=== PATIENT | female | born 1995 | race Caucasian/White ===

== ENCOUNTER 2016-07-25 21:27 | Emergency (ER) | payer OTHER ==
[~2016-07-25 21:27] MED LIST: BENZ1 PO; BENZ2 PO; HALO1 PO; HALO100P IM; HALO50P IM; LITH300 PO; QUET25 PO; QUET50XR PO; Z.0.BCPILL PO
[2016-07-25 21:29] VITALS: BP 145/87; PULSE 103; RESP 16; TEMP 99.6; O2SAT 100
[2016-07-25] MEDS ORDERED: COGENTIN PO (23:13)
--- NOTE | 2016-07-25 23:24 | PD ---
HPI Chief Complaint: Medication Refill Request Time Seen by Provider: 23:17 Travel History International Travel<30 days: No Contact w/Intl Traveler<30days: No Traveled to known affect area: No History of Present Illness HPI 20-year-old white female presents to emergency department requesting a refill of her Geodon as well as a adjustment in her dose. She states that she takes 80 mg daily. She's been on it now for over a month. She states that she had just moved to the area this past week from [place]. She only has 9 pills left. She does not have any appointment with a psychiatrist until the . She states that she does not have any thoughts of self-harm or harming others. She feels that the dose is too high and she is having side effects. This is giving her shortness of breath, difficulty swallowing and she feels that she's having problems with memory. She states initially that she would like to stay and see the psychiatrist but she is staying in a adult foster care and she has a curfew and needs to go home. PFSH Past Medical History Narrative Medical Schizoaffective disorder, bipolar, anxiety ADHD: No Bipolar Disorder: Yes Cancer: No Cardiovascular Problems: No Diabetes: No Headaches: No Psychiatric: Yes (shizoaffective) Immunizations Current: Yes Migraines: No Seizures: No Thyroid Disease: No Ulcer: No Tetanus Vaccination: < 5 Years ?: Not LMP: 06/25/16 : 0 Para: 0 Miscarriage: 0 : 0 Past Surgical History Other Surgery: Yes (ON LEFT FOOT) Social History Alcohol Use: No Tobacco Use: No Substance Use: No Allergies-Medications (Allergen,Severity, Reaction): Coded Allergies: No Known Allergies (Unverified , 07/25/16) Reported Meds & Prescriptions Reported Meds & Active Scripts Active [Cogentin] 1 Mg PO BID Benztropine Mesylate 2 Mg Tab 2 Mg PO Q12HR Lithotabs ([place] Carbonate) 300 Mg Tabcr 300 Mg PO DIRECTED 1 in a.m. 2 at bedtime Haldol (Decanoate) 50 mg Ampule (Haloperidol Decanoate) 50 Mg/Ml Inj 75 Mg IM Q28D Next injection due 02/25/15 Quetiapine Fumarate 25 Mg Tab 25 Mg PO HS 14 Days Seroquel Xr (Quetiapine Fumarate) 50 Mg [place] 100 Mg PO 2 AT AT BEDTIME Benztropine Mesylate 1 Mg Tab 1 Mg PO DAILY@07,15 Lithotabs ([place] Carbonate) 300 Mg Tabcr 300 Mg PO DIRECTED 1 in a.m. 2 at at bedtime Haldol (Haloperidol) 1 Mg Tab 1 Mg PO HS Haldol (Decanoate) 50 mg Ampule (Haloperidol Decanoate) 50 Mg/Ml Inj 75 Mg IM Q28D Reported Control Pills (Miscellaneous Medication) Tab 1 Tab PO DAILY Haldol (Decanoate) 100 mg Ampule (Haloperidol Decanoate) 100 Mg/Ml Inj Unknown Dose IM Q30D Lithotabs ([place] Carbonate) 300 Mg Tab 600 Mg PO HS Review of Systems Except as stated in HPI: all other systems reviewed are Neg Physical Exam Narrative GENERAL: Well-nourished, well-developed patient. SKIN: Warm and dry. HEAD: Normocephalic and atraumatic. EYES: No scleral icterus. No injection or drainage. ENT: No nasal drainage noted. Mucous membranes pink. Airway patent. NECK: Supple, trachea midline. Moves head freely without obvious discomfort. CARDIOVASCULAR: Regular rate and rhythm without murmurs, gallops, or rubs. RESPIRATORY: Breath sounds equal bilaterally. No accessory muscle use. GASTROINTESTINAL: Abdomen soft, non-tender, nondistended. EXTREMITIES: No cyanosis or edema. BACK: Nontender without obvious deformity. No CVA tenderness. NEURO: Patient is alert and oriented. no sensorimotor deficits. Nonfocal. Normal speech. PSYCH: No delusions. No auditory or visual hallucinations. Data Data Last Documented VS Vital Signs Date Time Temp Pulse Resp B/P Pulse Ox O2 Delivery O2 Flow Rate FiO2 07/25/16 21:29 99.6 103 16 145/87 100 Room Air MDM Medical Decision Making Medical Screen Exam Complete: Yes Emergency Medical Condition: Yes Medical Record Reviewed: Yes Differential Diagnosis MDM: High Differential diagnoses: Schizophrenia, schizoaffective disorder, bipolar, anxiety, depression, adjustment reaction, mood disorder NOS, ODD, depressive disorder NOS, dementia, dementia with agitation, psychosis NOS, substance induced mood disorder, intermittent explosive disorder, Asperger syndrome, infection,electrolyte abnormality, malingering. Narrative Course This is a 20-year-old female requesting a refill of medication adjustment of her Geodon. She still has 9 days left. She has given the option of staying here in the ER this either psychiatrist this morning. She does not feel the need to stay. She feels comfortable going home. She given outpatient treatment options with [facility]. She complains of extraparametal symptoms and she was given a prescription for Cogentin 1 mg twice daily for 10 days. She is advised strongly to follow-up with [facility] or try to get into her psychiatrist sooner. Patient is given a packet of our outpatient psychiatric treatment information. This is schizoaffective disorder, medication side effect Diagnosis Primary Impression: Schizoaffective disorder, chronic condition with acute exacerbation Additional Impression: Medication side effect Qualified Code: T88.7XXA - Medication side effect, initial encounter Patient Instructions: General Instructions Additional Instructions: Rest. Follow-up with [facility] in the morning. Cogentin. Contact her psychiatrist to see if they can see you sooner. Return to the ER if any problems develop. Med/Other Pt SpecificInfo: Prescription(s) given Scripts [Cogentin] No Conflict Check1 Mg PO BID #20 Prov:Berry Hernandez MD 07/25/16 Disposition: 01 DISCHARGE HOME Condition: Stable Garrett Marroquin July 25, 2016 23:24
[2016-09-01] MEDS ORDERED: SYMB80AE INH (15:23)
[2016-09-01] MEDS ORDERED: ZIPR20 PO (16:02)
[2016-09-01] MEDS ORDERED: ADVA100A INH ×2 (16:02→16:11)
== END 2016-07-26 00:03 | disposition home or self-care (01) ==
LOC: NEPK 21:27
DX: F25.9 Schizoaffective disorder, unspecified (principal); T43.595A Adverse effect of other antipsychotics and neuroleptics, initial encounter; F41.9 Anxiety disorder, unspecified; F31.9 Bipolar disorder, unspecified
CPT/HCPCS: 99281

== ENCOUNTER 2016-07-30 20:30 | Inpatient (IN) | payer OTHER ==
[~2016-07-30] VITALS: Ht 160 cm; Wt 57.1 kg
[~2016-07-30 20:30] MED LIST changes: +COGENTIN PO
[2016-07-30 20:31] VITALS: BP 131/87; PULSE 80; RESP 16; TEMP 98.9; O2SAT 99
--- NOTE | 2016-07-30 21:09 | PD ---
HPI Chief Complaint: Medical Clearance Time Seen by Provider: 21:09 Travel History International Travel<30 days: No Contact w/Intl Traveler<30days: No Traveled to known affect area: No History of Present Illness HPI 20 year-old female history of schizoaffective disorder presents to the emergency department requesting adjustment of her Geodon. This is the second time this week the patient has been here requesting this. She states that she attempted [facility] however they could not help her this week. She was uncertain of the reason why. She states that her symptoms have gotten to the point where she cannot leave the house. She states she does feel dizzy at times since starting the medication one month ago this has worsened. She is concerned because she does not want to not take her medication, rather she wants it adjusted or changed. Other than the reports of adverse side effects from her medication, she has no acute medical needs. She has no symptoms to report. PFSH Past Medical History ADHD: No Bipolar Disorder: Yes Cancer: No Cardiovascular Problems: No Diabetes: No Headaches: No Psychiatric: Yes (shizoaffective) Immunizations Current: Yes Migraines: No Seizures: No Thyroid Disease: No Ulcer: No ?: Not LMP: 06/11/16 : 0 Para: 0 Miscarriage: 0 : 0 Past Surgical History Other Surgery: Yes (ON LEFT FOOT) Social History Alcohol Use: No Tobacco Use: No Substance Use: No Allergies-Medications (Allergen,Severity, Reaction): Coded Allergies: No Known Allergies (Unverified , 07/30/16) Reported Meds & Prescriptions Reported Meds & Active Scripts Active Reported Ventolin Hfa 18 GM Inh (Albuterol Sulfate) 90 Mcg/Act Aer 2 Puff INH Q4-6H PRN Vistaril (Hydroxyzine Pamoate) 50 Mg Cap 50 Mg PO TID PRN Geodon (Ziprasidone) 80 Mg Cap 80 Mg PO DAILY Review of Systems Except as stated in HPI: all other systems reviewed are Neg Physical Exam Narrative GENERAL: Well-nourished female patient, in no acute distress SKIN: Focused skin assessment warm/dry. HEAD: Atraumatic. Normocephalic. EYES: Pupils equal and round. No scleral icterus. No injection or drainage. ENT: No nasal bleeding or discharge. Mucous membranes pink and moist. NECK: Trachea midline. No JVD. CARDIOVASCULAR: Regular rate and rhythm. RESPIRATORY: No accessory muscle use. Clear to auscultation. Breath sounds equal bilaterally. GASTROINTESTINAL: Abdomen soft, non-tender, nondistended. Hepatic and splenic margins not palpable. MUSCULOSKELETAL: No obvious deformities. No clubbing. No cyanosis. No edema. NEUROLOGICAL: Awake and alert. No obvious cranial nerve deficits. Motor grossly within normal limits. Normal speech. PSYCHIATRIC: Appropriate mood and affect; insight and judgment normal. Data Data Last Documented VS Vital Signs Date Time Temp Pulse Resp B/P Pulse Ox O2 Delivery O2 Flow Rate FiO2 07/31/16 01:08 68 14 106/58 99 Room Air 07/30/16 20:31 98.9 Orders Complete Blood Count With Diff (07/30/16 21:09) Basic Metabolic Panel (Bmp) (07/30/16 21:09) Ed Urine Pregnancytest Poc (07/30/16 21:09) Psych Screen (07/30/16 21:09) Drug Screen, Random Urine (07/30/16 21:09) Alcohol (Ethanol) (07/30/16 21:09) Labs Laboratory Tests Test 07/30/16 07/31/16 21:42 02:00 White Blood Count 9.4 TH/MM3 Red Blood Count 3.96 MIL/MM3 Hemoglobin 10.8 GM/DL Hematocrit 32.9 % Mean Corpuscular Volume 83.2 FL Mean Corpuscular Hemoglobin 27.3 PG Mean Corpuscular Hemoglobin 32.8 % Concent Red Cell Distribution Width 13.9 % Platelet Count 280 TH/MM3 Mean Platelet Volume 7.7 FL Neutrophils (%) (Auto) 69.2 % Lymphocytes (%) (Auto) 24.2 % Monocytes (%) (Auto) 4.6 % Eosinophils (%) (Auto) 1.2 % Basophils (%) (Auto) 0.8 % Neutrophils # (Auto) 6.5 TH/MM3 Lymphocytes # (Auto) 2.3 TH/MM3 Monocytes # (Auto) 0.4 TH/MM3 Eosinophils # (Auto) 0.1 TH/MM3 Basophils # (Auto) 0.1 TH/MM3 CBC Comment DIFF FINAL Differential Comment Sodium Level 140 MEQ/L Potassium Level 3.7 MEQ/L Chloride Level 104 MEQ/L Carbon Dioxide Level 28.9 MEQ/L Anion Gap 7 MEQ/L Blood Urea Nitrogen 15 MG/DL Creatinine 0.74 MG/DL Estimat Glomerular Filtration 101 ML/MIN Rate Random Glucose 93 MG/DL Calcium Level 8.6 MG/DL Ethyl Alcohol Level LESS THAN 3 MG/DL Urine Opiates Screen NEG Urine Barbiturates Screen NEG Urine Amphetamines Screen NEG Urine Benzodiazepines Screen NEG Urine Cocaine Screen NEG Urine Cannabinoids Screen NEG MDM Medical Decision Making Medical Screen Exam Complete: Yes Emergency Medical Condition: Yes Medical Record Reviewed: Yes Differential Diagnosis Medication side effects versus adverse effect versus mood disorder versus personality disorder versus normal exam Narrative Course 20-year-old female presents to the emergency department for evaluation. Patient appears without distress. Her vital signs are stable. I discussed the psychiatric nurses the patient to have presented the patient to psychiatry vice president for instruction. She'll be seen in the morning by psychiatry. Lab work is without acute concern. She is medically cleared and undergo psychiatric screening for further evaluation and disposition. Mental health screening discussed with the patient. Psychiatric screen ordered. Diagnosis Primary Impression: Medication side effect Qualified Code: T88.7XXD - Medication side effect, subsequent encounter Condition: Stable Bridget Downs July 30, 2016 21:09
[2016-07-30 22:10] LABS: AUTOMATED NEUTROPHIL # 6.5 TH/MM3 (1.8-7.7); BASOPHIL # 0.1 TH/MM3 (0-0.2); BASOPHIL % 0.8 % (0.0-2.0); EOSINOPHIL # 0.1 TH/MM3 (0-0.4); EOSINOPHIL % 1.2 % (0.0-4.0); HEMATOCRIT 32.9 % (35.0-46.0); HEMO FLAGS DIFF FINAL; LYMPH % 24.2 % (9.0-44.0); LYMPHOCYTE # 2.3 TH/MM3 (1.0-4.8); MEAN CELL VOLUME 83.2 FL (80.0-100.0); MEAN CORPUSCULAR HEMOGLOBIN 27.3 PG (27.0-34.0); MEAN CORPUSCULAR HGB CONC 32.8 % (32.0-36.0); MONO % 4.6 % (0.0-8.0); NEUT % 69.2 % (16.0-70.0); PLATELET COUNT 280 TH/MM3 (150-450); RED BLOOD COUNT 3.96 MIL/MM3 (4.00-5.30); RED CELL DISTRIBUTION WIDTH 13.9 % (11.6-17.2); WHITE BLOOD COUNT 9.4 TH/MM3 (4.0-11.0)
[2016-07-30 22:35] LABS: ANION GAP 7 MEQ/L (5-15); BICARBONATE 28.9 MEQ/L (21.0-32.0); BLOOD UREA NITROGEN 15 MG/DL (7-18); CHLORIDE 104 MEQ/L (98-107); GLOMERULAR FILTRATION RATE 101 ML/MIN (>89); POTASSIUM 3.7 MEQ/L (3.5-5.1); SODIUM (NA) 140 MEQ/L (136-145)
[2016-07-31 01:08] VITALS: BP 106/58; PULSE 68; RESP 14; O2SAT 99
[2016-07-31] MEDS ORDERED: VENTAER INH (02:24)
[2016-07-31] MEDS ORDERED: VIST50CA PO (02:24)
[2016-07-31] MEDS ORDERED: GEOD80CA PO (02:24)
[2016-07-31 02:40] LABS: AMPHETAMINE, URINE NEG (NEG); BARBITURATES, URINE NEG (NEG); COCAINE, URINE NEG (NEG)
[2016-07-31 05:26] VITALS: BP 102/68; PULSE 63; RESP 12; O2SAT 99
[2016-07-31 10:43] VITALS: BP 121/59; PULSE 83; RESP 16; O2SAT 100
[2016-07-31] MEDS ORDERED: LORazepam 0.5 MG TAB PO PRN (12:30)
[2016-07-31] MEDS ORDERED: ALUMINUM/MAGNESIUM/SIMETH 30 ML CUP PO PRN (12:30)
[2016-07-31] MEDS ORDERED: ACETAMINOPHEN 325 MG TAB PO PRN (12:30)
[2016-07-31] MEDS ORDERED: LORazepam 1 MG TAB PO PRN (12:30)
[2016-07-31] MEDS: NICOTINE 21 MG/24 HR PATCH T-DERMAL SCH (12:30)
[2016-07-31] MEDS ORDERED: LORazepam 2 MG/ML VIAL IM PRN ×2 (12:30)
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
[2016-07-31] MEDS: PROPRANOLOL HCL 10 MG TAB PO SCH ×2 (13:21→20:25)
[2016-07-31 14:00] VITALS: BP 133/66; PULSE 52; RESP 16; TEMP 98.4; O2SAT 100
[2016-07-31] MEDS ORDERED: ZIPRASIDONE HCL 60 MG CAP PO SCH (21:00)
[2016-07-31 21:17] VITALS: RESP 18; O2SAT 98
[2016-08-01 05:47] VITALS: BP 84/43; PULSE 49; RESP 16; TEMP 97.8
[2016-08-01] MEDS: PROPRANOLOL HCL 10 MG TAB PO SCH ×2 (08:30→21:20)
[2016-08-01] MEDS: MAGNESIUM HYDROXIDE SUSP 30 ML CUP PO PRN ×2 (08:33→21:52)
[2016-08-01] MEDS: NICOTINE 21 MG/24 HR PATCH T-DERMAL SCH (08:44)
--- NOTE | 2016-08-01 14:18 | HHI.PYPN ---
Subjective Remarks Patient continues to complain of sedation from the Geodon. States she has a history of bipolar disorder but this physician does not see this criteria upon examination. This physician will continue to taper the patient off of Geodon. She'll be reevaluated for discharge tomorrow. Review of Systems Except as stated in HPI: all other systems reviewed are Neg Objective Alert: Yes [place]: Person, Place, Date, Situation Mood: Calm Affect: Euthymic Memory Intact: Immediate, Recent, Remote Hallucinations: Other Delusions: No Delusion Type: Other Suicidal: Ideation Homicidal: Ideation Insight/Judgment Adequate Vitals/IOs Vital Signs Date Time Temp Pulse Resp B/P Pulse Ox O2 Delivery O2 Flow Rate FiO2 08/01/16 05:47 97.8 49 16 84/43 07/31/16 21:17 98 07/31/16 10:43 Room Air Assessment & Plan Problem List: (1) Adjustment disorder with mixed disturbance of emotions and conduct ICD Code: F43.25 (2) Acute neuroleptic-induced akathisia ICD Code: T43.501A Assessment & Plan Estimated LOS: 1 days continue to taper patient off of Geodon. Justification for Cont. Inpt. Side effects to medications intolerable. Demetrio Huertas MD August 01, 2016 14:17
[2016-08-01] MEDS ORDERED: ZIPRASIDONE HCL 40 MG CAP PO SCH (21:00)
[2016-08-01 21:49] VITALS: BP 98/52; PULSE 52; RESP 16; TEMP 99.1; O2SAT 99
[2016-08-02 05:37] VITALS: BP 101/57; PULSE 52; RESP 18; TEMP 98.1; O2SAT 99
[2016-08-02] MEDS: PROPRANOLOL HCL 10 MG TAB PO SCH (08:52)
[2016-08-02] MEDS: NICOTINE 21 MG/24 HR PATCH T-DERMAL SCH (08:53)
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
[2016-08-02 17:59] VITALS: BP 101/55; PULSE 57; RESP 18; TEMP 98.5; O2SAT 98
[2016-09-01] MEDS ORDERED: SYMB80AE INH (15:23)
[2016-09-01] MEDS ORDERED: ADVA100A INH ×2 (16:02→16:11)
[2016-09-01] MEDS ORDERED: ZIPR20 PO (16:02)
== END 2016-08-02 19:25 | DRG 885 ==
LOC: NEPD 20:30 → NEDA 07-31 10:06 → H260 07-31 13:40
PROVIDERS: ADMIT Psychiatry & Neurology Psychiatry; ATTEND Psychiatry & Neurology Psychiatry
DX: F31.9 Bipolar disorder, unspecified (principal); R45.851 Suicidal ideations; F25.9 Schizoaffective disorder, unspecified; F43.25 Adjustment disorder with mixed disturbance of emotions and conduct; F43.10 Post-traumatic stress disorder, unspecified; G47.00 Insomnia, unspecified; Z62.810 Personal history of physical and sexual abuse in childhood; Z91.5 Personal history of self-harm
CPT/HCPCS: 80048; 80307; 84703; 85025; 99284

== ENCOUNTER 2016-10-13 14:46 | Emergency (ER) | payer OTHER ==
[~2016-10-13] VITALS: Ht 162.6 cm; Wt 50.0 kg
[~2016-10-13 14:46] MED LIST changes: +ADVA100A INH; -BENZ1 PO; -BENZ2 PO; -COGENTIN PO; -HALO1 PO; -HALO100P IM; -HALO50P IM; -LITH300 PO; -QUET25 PO; -QUET50XR PO; -Z.0.BCPILL PO; +ZIPR20 PO
[2016-10-13 15:10] VITALS: BP 119/70; PULSE 89; RESP 14; TEMP 98; O2SAT 99
[2016-10-13] MEDS ORDERED: REME15TA PO (16:14)
[2016-10-13 16:18] VITALS: BP 117/77; PULSE 67; RESP 18; O2SAT 100
[2016-10-13 16:28] LABS: AUTOMATED NEUTROPHIL # 2.7 TH/MM3 (1.8-7.7); BASOPHIL % 0.9 % (0.0-2.0); EOSINOPHIL # 0.1 TH/MM3 (0-0.4); EOSINOPHIL % 2.4 % (0.0-4.0); HEMATOCRIT 37.3 % (35.0-46.0); HEMO FLAGS DIFF FINAL; LYMPH % 35.2 % (9.0-44.0); LYMPHOCYTE # 1.7 TH/MM3 (1.0-4.8); MEAN CELL VOLUME 83.1 FL (80.0-100.0); MEAN CORPUSCULAR HEMOGLOBIN 27.7 PG (27.0-34.0); MEAN CORPUSCULAR HGB CONC 33.3 % (32.0-36.0); MONO % 5.5 % (0.0-8.0); PLATELET COUNT 293 TH/MM3 (150-450); RED BLOOD COUNT 4.48 MIL/MM3 (4.00-5.30); RED CELL DISTRIBUTION WIDTH 14.1 % (11.6-17.2); WHITE BLOOD COUNT 4.9 TH/MM3 (4.0-11.0)
--- NOTE | 2016-10-13 16:50 | PD ---
HPI Chief Complaint: Psychiatric Symptoms Time Seen by Provider: 16:47 Travel History International Travel<30 days: No Contact w/Intl Traveler<30days: No Traveled to known affect area: No History of Present Illness HPI 20-year-old female that presents to the ED for evaluation of psychiatric illness. Patient was Irineo huynh. Patient has a chronic history of bipolar disorder and takes Geodon. Patient does have a history of suicidal attempts in the past and cutting. She voices no homicidal or suicidal ideation. She states compliance with her medication. No drug abuse or alcohol abuse. No other medical issues. No allergies to medication. Symptoms appear to be in worsening for the past couple of days. She has been in this hospital multiple times before [facility] Past Medical History Medical History: Denies Significant Hx ADHD: No Bipolar Disorder: Yes Anxiety: Yes Depression: Yes Cancer: No Cardiovascular Problems: No Diabetes: No Diminished Hearing: No Genitourinary: No Headaches: No Musculoskeletal: No Neurologic: No Psychiatric: Yes (Bipolar Anxiety and PTSD) Reproductive: No Respiratory: No Immunizations Current: No Migraines: No Seizures: No Thyroid Disease: No Ulcer: No Tetanus Vaccination: < 5 Years Influenza Vaccination: No ?: Unknown Menopausal: No : 0 Para: 0 Miscarriage: 0 : 0 Past Surgical History Surgical History: No Previous Surgery Abdominal Surgery: No Cardiac Surgery: No Ear Surgery: No Endocrine Surgery: No Eye Surgery: No Genitourinary Surgery: No Gynecologic Surgery: No Oral Surgery: No Thoracic Surgery: No Other Surgery: Yes (ON LEFT FOOT) Social History Alcohol Use: No Tobacco Use: No Substance Use: No Allergies-Medications (Allergen,Severity, Reaction): Coded Allergies: No Known Allergies (Unverified , 10/03/16) Reported Meds & Prescriptions Reported Meds & Active Scripts Active Advair Diskus Inh (Fluticasone-Salmeterol Inh) 100-50 Mcg/Blist Aer 1 Puff INH BID Rinse mouth after use. Reported Remeron (Mirtazapine) 15 Mg Tab 7.5 Mg PO HS Geodon (Ziprasidone) 20 Mg Cap 20 Mg PO BID Review of Systems Except as stated in HPI: all other systems reviewed are Neg Physical Exam Narrative GENERAL: SKIN: Warm and dry. HEAD: Atraumatic. Normocephalic. EYES: Pupils equal and round. No scleral icterus. No injection or drainage. ENT: No nasal bleeding or discharge. Mucous membranes pink and moist. Tongue is midline. No uvula deviation. NECK: Trachea midline. No JVD. CARDIOVASCULAR: Regular rate and rhythm. No murmurs, S3, S4. RESPIRATORY: No accessory muscle use. Clear to auscultation. Breath sounds equal bilaterally. GASTROINTESTINAL: Abdomen soft, non-tender, nondistended. Hepatic and splenic margins not palpable. MUSCULOSKELETAL: Extremities without clubbing, cyanosis, or edema. No obvious deformities. Full range of motion of the upper and lower extremities bilaterally. 2+ pulses bilaterally. NEUROLOGICAL: Awake and alert. No obvious cranial nerve deficits. Motor grossly within normal limits. Five out of 5 muscle strength in the arms and legs. Normal speech. PSYCHIATRIC: Appropriate mood and affect; insight and judgment normal. Data Data Last Documented VS Vital Signs Date Time Temp Pulse Resp B/P Pulse Ox O2 Delivery O2 Flow Rate FiO2 10/13/16 16:18 67 18 117/77 100 Room Air 10/13/16 15:10 98.0 Orders Complete Blood Count With Diff (10/13/16 15:28) Comprehensive Metabolic Panel (10/13/16 15:28) Psych Screen (10/13/16 15:28) Drug Screen, Random Urine (10/13/16 15:28) Diet Regular Basic (10/13/16 Dinner) Labs Laboratory Tests Test 10/13/16 15:16 White Blood Count 4.9 TH/MM3 Red Blood Count 4.48 MIL/MM3 Hemoglobin 12.4 GM/DL Hematocrit 37.3 % Mean Corpuscular Volume 83.1 FL Mean Corpuscular Hemoglobin 27.7 PG Mean Corpuscular Hemoglobin 33.3 % Concent Red Cell Distribution Width 14.1 % Platelet Count 293 TH/MM3 Mean Platelet Volume 7.7 FL Neutrophils (%) (Auto) 56.0 % Lymphocytes (%) (Auto) 35.2 % Monocytes (%) (Auto) 5.5 % Eosinophils (%) (Auto) 2.4 % Basophils (%) (Auto) 0.9 % Neutrophils # (Auto) 2.7 TH/MM3 Lymphocytes # (Auto) 1.7 TH/MM3 Monocytes # (Auto) 0.3 TH/MM3 Eosinophils # (Auto) 0.1 TH/MM3 Basophils # (Auto) 0.0 TH/MM3 CBC Comment DIFF FINAL Differential Comment MDM Medical Decision Making Medical Screen Exam Complete: Yes Emergency Medical Condition: Yes Medical Record Reviewed: Yes Interpretation(s) CBC Diagram 10/13/16 15:16 Differential Diagnosis Depression versus suicidal ideation versus anxiety versus adjustment disorder versus mood disorder versus bipolar disorder versus schizophrenia versus paranoid disorder versus psychosis versus substance abuse versus alcohol abuse versus alcohol induced psychosis versus homicidality addition versus cutting versus personality disorder Narrative Course 20-year-old for evaluation of psychiatric illness. Patient was properly examined and was found to have signs and symptoms consistent appears to be psychiatric illness. Labs were drawn. Patient will be medically clear. Okay to be seen by psych. Mental health screening was discussed with the patient. Diagnosis Primary Impression: Adjustment disorder with mixed disturbance of emotions and conduct Art Preston Oct 13, 2016 16:50
[2016-10-13 16:57] LABS: ANION GAP 8 MEQ/L (5-15); AST (GOT) 9 U/L (16-38); BICARBONATE 28.5 MEQ/L (21.0-32.0); BLOOD UREA NITROGEN 17 MG/DL (7-18); CHLORIDE 105 MEQ/L (98-107); GLOMERULAR FILTRATION RATE 81 ML/MIN (>89); SODIUM (NA) 141 MEQ/L (136-145)
[2016-10-13 17:01] LABS: ALKALINE PHOSPHATASE 55 U/L (45-117); ALT (GPT) 11 U/L (9-42); TOTAL BILIRUBIN ADULT 1.1 MG/DL (0.2-1.0)
[2016-10-13 19:56] LABS: AMPHETAMINE, URINE NEG (NEG); BARBITURATES, URINE NEG (NEG); COCAINE, URINE NEG (NEG)
[2016-10-13] MEDS ORDERED: ZIPRASIDONE HCL 40 MG CAP PO ONE (20:45)
[2016-10-13 22:10] VITALS: BP 107/66; PULSE 54; RESP 16; TEMP 98.8; O2SAT 100
[2016-10-14 02:01] VITALS: BP 101/55; PULSE 63; RESP 16; O2SAT 99
[2016-10-14 06:05] VITALS: BP 117/54; PULSE 53; RESP 18; TEMP 97.8; O2SAT 97
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
[2016-10-14 14:00] VITALS: BP 116/58; PULSE 50; RESP 18
[2016-10-14 16:27] VITALS: BP 148/97; PULSE 95; RESP 18; O2SAT 98
[2016-10-14 16:42] VITALS: BP 148/90; TEMP 98
== END 2016-10-14 14:00 | disposition home or self-care (01) ==
LOC: NEDAMB 14:46 → NEPJ 10-14 14:00
DX: F43.25 Adjustment disorder with mixed disturbance of emotions and conduct (principal); F25.9 Schizoaffective disorder, unspecified; F43.10 Post-traumatic stress disorder, unspecified; F41.9 Anxiety disorder, unspecified; F31.9 Bipolar disorder, unspecified; Z79.899 Other long term (current) drug therapy
CPT/HCPCS: 80053; 80307; 85025; 99284